=== PATIENT | female | born 1970 | race Caucasian/White ===

== ENCOUNTER 2017-01-31 18:50 | Emergency (ER) | payer BC ==
[~2017-01-31] VITALS: Ht 160 cm; Wt 59.1 kg
[2017-01-31 18:56] VITALS: BP 115/74; PULSE 52; TEMP 98.1
[2017-01-31] MEDS ORDERED: ZOLOFT 100MG100 MG PO (18:59)
== END 2017-01-31 20:24 | disposition home or self-care (01) ==
LOC: COL.ER 18:50
DX: S93.401A Sprain of unspecified ligament of right ankle, initial encounter (principal); X50.0XXA Overexertion from strenuous movement or load, initial encounter; Y92.009 Unspecified place in unspecified non-institutional (private) residence as the place of occurrence of the external cause

== ENCOUNTER → 2017-06-08 | Outpatient (CLI) | payer BC ==
[~2017-06-08] MED LIST: ZOLOFT 100MG100 MG PO
== END ==
LOC: MC.RAD 13:56
DX: Z12.31 Encounter for screening mammogram for malignant neoplasm of breast (principal)